=== PATIENT | female | born 1965 | race Caucasian/White ===

== ENCOUNTER → 2018-02-21 | Day surgery (SDC) | payer BC ==
--- NOTE | 2018-02-21 10:59 | RAD REPORT ---
EXAM DESCRIPTION: US - Fine Needle Asp Breast Guide - 02/21/2018 10:52 am CLINICAL HISTORY: N63.12 COMPARISON: Follow Up Breast [facility] dated 01/16/2018; 3D DIAG KIMO RT UNI W/CAD dated 01/16/2018 FINDINGS: Preoperative diagnosis: History of left breast carcinoma with cystic right breast lesions. . Post operative diagnosis: Same. Conscious Sedation: None Fluoroscopy time: None Contrast used: None Estimated blood loss: Minimal Specimens:Right breast cyst fluid. The right breast was prepped and draped in the usual sterile fashion. 1% lidocaine was infiltrated in to the subcutaneous tissues for local anesthesia. Real time ultrasound scanning of the right breast d emonstrated 11 mm cystic lesion periareolar region and a 5 mm cystic lesion upper inner quadrant.. Un natalee ultrasound guidance, FNA needle was used to fully aspirate both cystic lesions. Both lesions seen to collapse. The larger lesion yielded a small volume of dark yellow/ brown fluid which was sent for cytology per request of referring physician. The patient tolerated the procedure well. IMPRESSION: Successful ultrasound-guided FNA of right breast cyst x2.
== END | disposition home or self-care (01) ==
LOC: FNA 09:41
PROVIDERS: ATTEND Surgery
PROC: 0H9T3ZX Drainage of Right Breast, Percutaneous Approach, Diagnostic (ICD-10-PCS; principal; 2018-02-21)
PROC: BH40ZZZ Ultrasonography of Right Breast (ICD-10-PCS; 2018-02-21)
DX: N63.12 Unspecified lump in the right breast, upper inner quadrant (principal)
CPT/HCPCS: 10022; 76942; 88161

== ENCOUNTER 2019-03-02 09:36 | Emergency (ER) | payer BC ==
[2019-03-02] MEDS ORDERED: NA CHLORIDE 0.9% 1,000 ML ONE (10:30)
[2019-03-02] MEDS ORDERED: ONDANSETRON 4 MG/2 ML VIAL ONE (10:30)
[2019-03-02] MEDS ORDERED: HYDROMORPHONE HCL 2 MG/ML inj ONE (10:30)
[2019-03-02] MEDS ORDERED: NA CHLORIDE 0.9% 100 ML IV ONE (10:30)
[2019-03-02 10:33] LABS: Absolute Lymphocytes (CBC) 2.3 K/uL (0.7-4.9); Eosinophils % 2.2 % (0-4.4); Hematocrit 44.7 % (36.0-45.0); Lymphocytes % 23.8 % (15.3-44.8); MPV 8.3 fL (7.6-11.3); Monocytes % 7.6 % (3.3-12.3); RBC Red Blood Cell Count 4.93 M/uL (3.86-4.86)
[2019-03-02 10:40] LABS: BUN Blood Urea Nitrogen 15 mg/dL (7-18); Bicarbonate 29 mmol/L (21-32); Glucose Level 117 mg/dL (74-106); Potassium 4.2 mmol/L (3.5-5.1); Sodium Level 139 mmol/L (136-145)
--- NOTE | 2019-03-02 11:15 | RAD REPORT ---
EXAM DESCRIPTION: CT - C Spine Wo Con - 03/02/2019 10:46 am CLINICAL HISTORY: Neck and back pain, recent fusion, possible infection at incision site, breast can cer history COMPARISON: None. TECHNIQUE: Axial 2 mm thick images of the cervical spine were obtained with sagittal and coronal rec onstruction images generated and reviewed. All CT scans are performed using dose optimization technique as appropriate and may include automated exposure control or mA/KV adjustment according to patient size. FINDINGS: Cervical body height and alignment are normal. Fusion changes are present. Anterior plate and screw fixation of the C5-6 level is present. There is significant disc space narrowing and degene rative disc disease at this level. Hardware is in place fusing the C5-6 and C6-7 facet joints. No oth er postsurgical changes to the cervical spine. No other areas of significant disc space narrowing or acute bone finding. There is mild degenerative change at the dens anterior arch C1 level. No central canal abnormality. Central canal detail is inherently limited. Posterior midline skin lina are present from the C3 level inferiorly to at least C3. At the superi or aspect of the skin staple line at the C3 level there is a 2 centimeter area of diminished attenuat ion believed to be postoperative seroma. There is otherwise mild stranding along the midline incision line within the subcutaneous fatty tissues. No air in the soft tissues. No clearly defined abscess o r drainable fluid collection. The C3 level suspected seroma is in the subcutaneous fatty tissues. No extension deeper towards the spine and central canal. IMPRESSION: No abscess or significant finding in the soft tissues confirmed. A 2 centimeter focal c ollection in the subcutaneous midline soft tissues at the C3 level is believed to be a postoperative seroma. Surgical hardware is in place appearing well positioned fusing the C5-6 bodies as well as the C5-6 an d C6-7 facet joints.
--- NOTE | 2019-03-02 11:19 | RAD REPORT ---
EXAM DESCRIPTION: CT - Thoracic Spine W/o Cont - 03/02/2019 10:48 am CLINICAL HISTORY: Neck and upper back pain, recent fusion procedure COMPARISON: None. TECHNIQUE: Axial 2 mm thick images of the thoracic spine were obtained with sagittal and coronal rec onstruction images generated and reviewed. All CT scans are performed using dose optimization technique as appropriate and may include automated exposure control or mA/KV adjustment according to patient size. FINDINGS: Thoracic body height and alignment are normal. No significant disc space narrowing or endp late degenerative change. No fracture or acute bony abnormality. No paraspinal mass or hematoma. Cervical fusion posterior incision staple line terminates approximate ly T2. No suspicious soft tissue finding in this region. No suspicious finding elsewhere in the soft tissues on this examination. Central canal detail is inherently limited. Mediastinal and hilar assessment is limited on this [facility] spine directed study. IMPRESSION: Negative thoracic spine CT examination for acute or significant finding.
--- NOTE | 2019-03-02 12:07 | EDPHYS ---
Physician Documentation [facility] Name: Amy Bush Age: 53 yrs Sex: Female : 1965 Arrival Date: 03/02/2019 Time: 09:41 Bed 6 Private MD: ED Physician Eliu Stuart HPI: 03/02 10:14 This 53 yrs old Female presents to ER via EMS with complaints of Neck Pain, kdr >24Hrs Old. 10:14 The patient or guardian complains of decreased range of motion, pain, that is acute. kdr The symptoms are located at the C3, C4, C5, C6 and C7, at the cervical spine, T1, T2 and T3. Onset: The symptoms/episode began/occurred gradually, Since last . , and became worse. Context: The problem was sustained at home, The neck injury/problem resulted from from unknown cause, The patient is post spinal surgery last week. Was discharged on . No pain at that time. Since then she has had increasing pain in her neck area. She is very restless and unable to answer questions. She is very restless. Associated signs and symptoms: Pertinent positives: constipation. The pain radiates. Modifying factors: The symptoms are alleviated by nothing. Severity of symptoms: At their worst the symptoms were mild. The patient has experienced similar episodes in the past. The patient has been recently seen by a physician: Discharged last week post-op. The patient was taking hydrocodone (4) or more prior to surgery. She was sent home with one hydrocodone per day. She had been on Oxycodone while in the hospital. Historical: - Allergies: 09:48 No Known Allergies; ss - PMHx: 09:48 breast CA; ss - PSHx: 09:48 cervical fusion; L mastectomy; ss ROS: 10:14 Constitutional: Negative for fever, chills, and weight loss, Eyes: Negative for injury, kdr pain, redness, and discharge, ENT: Negative for injury, pain, and discharge, Cardiovascular: Negative for chest pain, palpitations, and edema, Respiratory: Negative for shortness of breath, cough, wheezing, and pleuritic chest pain, Abdomen/GI: Negative for abdominal pain, nausea, vomiting, diarrhea, and constipation, Back: Negative for injury and pain, : Negative for injury, bleeding, discharge, and swelling, MS/Extremity: Negative for injury and deformity, Skin: Negative for injury, rash, and discoloration, Neuro: Negative for headache, weakness, numbness, tingling, and seizure activity. Psych: Negative for depression, anxiety, suicide ideation, homicidal ideation, and hallucinations, Allergy/Immunology: Negative for hives, rash, and allergies, Endocrine: Negative for neck swelling, polydipsia, polyuria, polyphagia, and marked weight changes, Hematologic/Lymphatic: Negative for swollen nodes, abnormal bleeding, and unusual bruising. 10:14 Neck: Positive for pain at rest. Exam: 10:14 Constitutional: This is a well developed, well nourished patient who is awake, alert, kdr and in moderate distress. Head/Face: Normocephalic, atraumatic. Eyes: Pupils equal round and reactive to light, extra-ocular motions intact. Lids and lashes normal. Conjunctiva and sclera are non-icteric and not injected. Cornea within normal limits. Periorbital areas with no swelling, redness, or edema. Chest/axilla: Normal chest wall appearance and motion. Nontender with no deformity. No lesions are appreciated. Cardiovascular: Regular rate and rhythm with a normal S1 and S2. No gallops, murmurs, or rubs. Normal PMI, no JVD. No pulse deficits. Respiratory: Lungs have equal breath sounds bilaterally, clear to auscultation and percussion. No rales, rhonchi or wheezes noted. No increased work of breathing, no retractions or nasal flaring. Abdomen/GI: Soft, non-tender, with normal bowel sounds. No distension or tympany. No guarding or rebound. No evidence of tenderness throughout. Back: No spinal tenderness. No costovertebral tenderness. Full range of motion. Female : Normal external genitalia. Skin: Warm, dry with normal turgor. Normal color with no rashes, no lesions, and no evidence of cellulitis. MS/ Extremity: Pulses equal, no cyanosis. Neurovascular intact. Full, normal range of motion. Neuro: Awake and alert, GCS 15, oriented to person, place, time, and situation. Cranial nerves II-XII grossly intact. Motor strength 5/5 in all extremities. Sensory grossly intact. Cerebellar exam normal. Normal gait. Psych: Awake, alert, with orientation to person, place and time. Behavior, mood, and affect are within normal limits. 10:14 Neck: External neck: Well healing incision with staple still present. NO s/s of infection. Vital Signs: 09:48 BP 138 / 95; Pulse 92; Resp 21; Temp 98.6(TE); Pulse Ox 98% on R/A; Height 5 ft. 4 in. ss (162.56 cm); MDM: 11:53 ED course: The patient is much improved with the pain medication - called Dr. Weiner kdr ([phone]) and left a message for him to call.. 11:55 Data reviewed: vital signs, nurses notes, lab test result(s), radiologic studies. kdr Counseling: I had a detailed discussion with the patient and/or guardian regarding: the historical points, exam findings, and any diagnostic results supporting the discharge/admit diagnosis, lab results, radiology results, the need for outpatient follow up. ED course: Will likely discharge the patient once I speak with Dr. Weiner. 12:06 Patient medically screened. [facility] 03/02 10:09 Order name: CBC with Diff; Complete Time: 11:16 kdr 03/02 10:09 Order name: Chem 7; Complete Time: 11:16 kdr 03/02 10:13 Order name: CT C Spine; Complete Time: 11:16 [facility] 03/02 10:13 Order name: CT Thoracic Spine Wo Cont; Complete Time: 11:42 kdr Administered Medications: 10:20 Drug: Dilaudid 2 mg Route: IVP; Site: left antecubital; sg 11:00 Follow up: Response: No adverse reaction; Pain is decreased sg 10:20 Drug: Zofran 4 mg Route: IVP; Site: left antecubital; sg 11:00 Follow up: Response: No adverse reaction; Nausea is decreased sg 10:20 Drug: NS 0.9% 1000 ml Route: IV; Rate: 1 bolus; Site: left antecubital; sg Disposition: 03/02/19 12:08 Discharged to Home. Impression: Post Op Neck Pain s/p spinal fusion. - Condition is Stable. - Discharge Instructions: Musculoskeletal Pain, Pain Without a Known Cause. - Medication Reconciliation Form, Thank You Letter form. - Follow up: Private Physician; When: 2 - 3 days; Reason: If symptoms return, Further diagnostic work-up, Recheck today's complaints, Continuance of care, Re-evaluation by your physician. Follow up: Jaci Weiner MD; When: Today; Reason: If symptoms return, Further diagnostic work-up, Recheck today's complaints, Continuance of care, Re-evaluation by your physician. - Notes: Follow-up today with your DrLuis in [place] Signatures: Dispatcher [employer] EDMS Robe Goodman RN RN sg Eliu Stuart MD MD kdr Alyx Burton RN RN ss August Freeman PA PA [id number] Corrections: (The following items were deleted from the chart) 12:06 12:06 03/02/2019 12:06 Transfer ordered to [facility]. Diagnosis is kdr Upper GI Bleed, Bowel Strictures. Reason for transfer: Higher level of care. Accepting physician is Unk. Condition is Serious. Problem is new. Symptoms are unchanged. kdr 12:31 12:08 03/02/2019 12:08 Discharged to Home. Impression: Post Op Neck Pain s/p spinal jr8 fusion. Condition is Stable. Forms are Medication Reconciliation Form, Thank You Letter, Antibiotic Education, Prescription Opioid Use. Follow up: Private Physician; When: 2 - 3 days; Reason: If symptoms return, Further diagnostic work-up, Recheck today's complaints, Continuance of care, Re-evaluation by your physician. Follow up: Jaci Weiner; When: Today; Reason: If symptoms return, Further diagnostic work-up, Recheck today's complaints, Continuance of care, Re-evaluation by your physician. kdr
--- NOTE | 2019-03-02 12:07 | ER ---
Nurse's Notes [facility] Name: Amy Bush Age: 53 yrs Sex: Female : 1965 Arrival Date: 03/02/2019 Time: 09:41 Bed 6 Private MD: Diagnosis: Post Op Neck Pain s/p spinal fusion Presentation: 03/02 09:44 Presenting complaint: EMS states: Neck pain s/p cervical fusion 5 days ago. Patient has ss been experiencing pain since the procedure, but it has increased significantly. Redness noted to area of which told EMS that is has gotten worse. Pt is A\T\O x2. EMS reports that patient took an Ambien last night and a [place] this morning. Transition of care: patient was not received from another setting of care. Onset of symptoms was February 25, 2019. Risk Assessment: Do you want to hurt yourself or someone else? Patient reports no desire to harm self or others. Initial Sepsis Screen: Does the patient have a suspected source of infection?. Care prior to arrival: Medication(s) given: Tylenol, 1000 mg, IVPB IV initiated. 20 GA, in the left antecubital area, Glucose check: 135. 09:44 Acuity: MARIIA 2 ss 09:44 Method Of Arrival: EMS: [facility] Historical: - Allergies: 09:48 No Known Allergies; ss - PMHx: 09:48 breast CA; ss - PSHx: 09:48 cervical fusion; L mastectomy; ss Assessment: 09:51 Reassessment: Pt is here and states that their goal today was to try to wean off pain ss medication as patient has not had a BM in several days, however he was unable to control her pain. When asked if patient is normal A\T\O x2 he states yes because she has taken an Ambien. Vital Signs: 09:48 BP 138 / 95; Pulse 92; Resp 21; Temp 98.6(TE); Pulse Ox 98% on R/A; Height 5 ft. 4 in. ss (162.56 cm); ED Course: 09:41 Patient arrived in ED. ss 09:47 Triage completed. ss 09:48 Arm band placed on right wrist. ss 09:50 Eliu Stuart MD is Attending Physician. kdr 10:47 CT C Spine In Process Unspecified. EDMS 10:47 CT Thoracic Spine Wo Cont In Process Unspecified. EDMS 12:07 Jaci Weiner MD is Referral Physician. kdr Administered Medications: 10:20 Drug: Dilaudid 2 mg Route: IVP; Site: left antecubital; sg 11:00 Follow up: Response: No adverse reaction; Pain is decreased sg 10:20 Drug: Zofran 4 mg Route: IVP; Site: left antecubital; sg 11:00 Follow up: Response: No adverse reaction; Nausea is decreased sg 10:20 Drug: NS 0.9% 1000 ml Route: IV; Rate: 1 bolus; Site: left antecubital; sg Outcome: 12:06 ER care complete, transfer ordered by . kdr 12:08 Discharge ordered by . kdr 12:31 Patient left the ED. jr8 Signatures: Dispatcher [employer] EDMS Robe Goodman RN RN Eliu Best MD MD kdr Smirch, Shelby, RN RN August Freeman PA PA [id number]
== END 2019-03-02 12:31 | disposition home or self-care (01) ==
LOC: ER 09:36
DX: G89.18 Other acute postprocedural pain (principal); M54.2 Cervicalgia; Z98.890 Other specified postprocedural states; Z85.3 Personal history of malignant neoplasm of breast; Z90.12 Acquired absence of left breast and nipple
CPT/HCPCS: 36415; 72125; 72128; 80048; 85025; 96374; 96375; 99283; J1170; J2405; J7030